=== PATIENT | male | born 1985 | race Caucasian/White ===

== ENCOUNTER 2020-01-17 09:01 | Day surgery (SDC) | payer OTHER ==
[2020-01-17 09:06] LABS: Absolute Lymphocytes (CBC) 2.4 K/uL (0.7-4.9); Basophils % 0.4 % (0-1.3); Hematocrit 43.7 % (39.6-49.0); Lymphocytes % 29.9 % (15.3-44.8); MPV 9.8 fL (7.6-11.3)
[2020-01-17] MEDS ORDERED: Ringers Lactate 1,000 ML IV ONE (09:27)
[2020-01-17] MEDS ORDERED: CEFAZOLIN/SWI 1gm 1 GM/10 ML SYR ONE (09:27)
[2020-01-17] MEDS ORDERED: LIDOCAINE 2% MPF 5 ML VIAL ONE (10:00)
[2020-01-17] MEDS ORDERED: FENTANYL CITR 100 MCG/2 ML ONE (10:00)
[2020-01-17] MEDS ORDERED: propofoL 200 MG/20 ML VIAL IV ONE ×2 (10:00→10:17)
[2020-01-17] MEDS ORDERED: MIDAZOLAM HCL 2 MG/2 ML INJ ONE (10:00)
[2020-01-17] MEDS ORDERED: EPHEDRINE SULF 50 MG/ML VIAL ONE (10:54)
[2020-01-17] MEDS ORDERED: ONDANSETRON 4 MG/2 ML VIAL ONE (10:58)
[2020-01-17] MEDS ORDERED: KETOROLAC 30 MG/ML INJ ONE (10:58)
[2020-01-17] MEDS ORDERED: dexAMETHasone 10 MG/ML VIAL ONE (10:58)
[2020-01-17] MEDS: HYDROMORPHONE HCL 1 MG/ML INJ ONE ×2 (11:56→12:01)
[2020-01-17] MEDS ORDERED: HYDROCODONE/APAP 7.5/325 MG TAB ONE (12:36)
--- NOTE | 2020-01-17 12:56 | OP ---
Date of Procedure: 01/17/2020 Surgeon: Rashawn Iraheta MD Preoperative Diagnosis: Inflamed sebaceous cyst, back. Postoperative Diagnosis: Inflamed sebaceous cyst, back. Procedure: Wide excision of inflamed sebaceous cyst, 8 x 3 cm with layered closure. Length of closu re is 8 cm. Estimated Blood Loss: Minimal. Specimens: Culture and sensitivity and cyst. Findings: As above. Anesthesia: General. Complications: None. Patient tolerated the procedure in stable condition, taken to Recovery in good general condition. Pl ease note, there was a quarter-inch [place] drain that was placed in the wound as well. Procedure In Detail: Patient was brought to the OR and placed in supine position. General anesthesi a begun. Patient was placed in the right lateral position, prepped and draped in the usual sterile f ashion. Marcaine 0.5% was infiltrated locally. A 15-blade was used to make an 8 x 3 cm incision to excise the inflamed red cyst. Then the dissection proceeded down through this deep subcutaneous tiss ue and the entire cyst was excised. There was some infected fluid inside the cyst which was cultured . Once the cyst was removed, wound was irrigated, bleeding was controlled with cautery, flaps were c reated. [place] drain quarter-inch was placed and secured with 3-0 nylon, 0 chromic was used to clos e the subcutaneous tissues and 2-0 nylon was used to close the skin. Sterile dressing was applied. Patient was awakened and taken to Recovery in good general condition. Discharge Note: Patient will go to Day Surgery and home when stable. Disposition: Home. Condition: Stable. Discharge Instructions: Resume home medications and diet. Activity as tolerated. No heavy lifting. Remove outer dressing in 2 days. Shower. Keep wound clean and dry. Follow up in my office in 1 w [facility]. Call for appointment. Tylenol No.3 one tablet p.o. q.4 p.r.n. pain, Cipro 500 mg p.o. q.12 wandy [facility] Voice ID: [id number] Report ID: [id number]
[2020-01-17 13:08] VITALS: BP 136/85; TEMP 96.5; O2SAT 96
== END 2020-01-17 13:00 | disposition home or self-care (01) ==
LOC: OR 09:01
PROVIDERS: ATTEND Surgery
PROC: 0JB70ZZ Excision of Back Subcutaneous Tissue and Fascia, Open Approach (ICD-10-PCS; principal; 2020-01-17 10:00)
DX: L72.3 Sebaceous cyst (principal); Z11.59 Encounter for screening for other viral diseases; E66.01 Morbid (severe) obesity due to excess calories; Z68.41 Body mass index [BMI] 40.0-44.9, adult; F41.9 Anxiety disorder, unspecified; Z72.0 Tobacco use
CPT/HCPCS: 11406; 87070; 85025; 36415; 87205; 88304; J2704 ×2; J2250; J3010; J1100; J1170; J0690; J7120; J2405; 88305